=== PATIENT | female | born 1980 ===

== ENCOUNTER 2017-10-22 15:41 | Emergency (ER) | payer MEDICAID, OTHER ==
[2017-10-22 17:21] VITALS: BMI 34.0
[2017-10-22 18:19] LABS: SQUAMOUS EPITHIAL 1 /hpf (0-5); URINE BACTERIA RARE (<OCC); URINE BILIRUBIN NEGATIVE (NEGATIVE); URINE BLOOD NEGATIVE (NEGATIVE); URINE CLARITY CLEAR (Clear); URINE COLOR YELLOW (YELLOW); URINE GLUCOSE (UA) NEG (Normal); URINE LEUKOCYTE ESTERASE NEG Leu/uL (Negative); URINE PROTEIN NEGATIVE (NEGATIVE); URINE UROBILINOGEN 0.2-1.0 mg/dL (0.2-1.0)
--- NOTE | 2017-10-22 19:24 | OBHP ---
Datetime: 10/22/2017 18:58 IP Adm Impression: , intrauterine IP Admit Plan: Observation/Evaluation; Discharge home Admit Comment, IP Provider: 36 y/o female with IUP 36.2wks by US (ROSALIO 11/17) presents to [facility] complaints of headache for the last 3 days. Headache is described as 10/10 in intensity, unilater al (left side), pressure like, throbbing with no associated focal deficits. She has been taking Tylen ol which partially relieves headache to 8/10. Additionally reports mild lower abdominal pain consiste nt with contractions. Denies n/v, ctx, LE swelling, epigastric pain, vb, lof, recent illness. +FT PMD: Hoa Torres PNC: Unremarkable, As per pt, BP have been normal in clinic visits POBHx: 2 SAB, 1 TOP, 1 prior c section 10 years ago, FT, no complications. PMHX: Denies hx of migraines NKDA Medications: PNV Social: Denies habits x3 PE: General: NAD Cardio: RRR, no murmurs Pulm: CTABL Abdominal: Gravid, NT Neuro: CN 2-12 in [facility], [facility], No gross motor or sensory deficits Extremities: No pedal edema FHR: 144, reactive CTX: mild irregular ctx Assessment: IUP 36.2 weeks with headache. Observed for 2 hours. Reassuring FHR tracing. Maternal v ital signs stable. No proteinuria. Plan: Discharge patient home. Tylenol po for headache. Patient strongly advised to stay hydrated. Labor precautions provided. F/U with OBGYN as scheduled. Discussed case with OB Attending, Dr. Kiana Luna, PGY1 Addendum by Dr. Bruno: I have evluated the patient independently and I agree with the above. Patie nt ruled out for Pre-eclampsia, [id number] mod simran, +accels, no decels, TOCO = irregular. Comfortable, Pelvic Type - PN: Adequate Extremities - PN: Normal Abdomen - PN: Normal Back - PN: Normal Breast - PN: Normal Lungs - PN: Normal Heart - PN: Normal Thyroid - PN: Normal Neurologic - PN: Normal HEENT - PN: Normal General - PN: Normal FHR - Baseline A Provider: 130 Contraction Comments Provider: occasional EGA AdmitDate IP: 36.2 Vital Signs Provider: Reviewed; Within Normal Limits IP Chief Complaint: Other NICHD Variability Prov Fetus A: Moderate 6-25bpm NICHD Accel Fetus A IP Provider: [id number] FHR Category Provider Fetus A: Category I NICHD Decel Fetus A IP Provider: None Genitourinary Exam: Normal DTRs - PN: Normal
--- NOTE | 2017-10-22 19:28 | OBDCSUM ---
Datetime: 10/22/2017 18:46 Discharged to, Provider: Home Follow up at, Provider: clinic Disch Instr Activity: Normal activity Disch Instr Diet: Regular Discharge Instructions, Provider: Routine instructions given Discharge Time: 10/22/2017 18:50 Follow up in weeks, Provider: 1 wk Disch Referrals: None Contraception discussed, Prov: Yes Discharge Diagnosis Prov Other: PONCE
[2017-10-22 23:04] VITALS: BP 133/79; PULSE 88; RESP 20; TEMP 98.7; O2SAT 99
== END 2017-10-22 19:00 | disposition home or self-care (01) ==
LOC: H.EROB2 15:41
DX: O26.93 Pregnancy related conditions, unspecified, third trimester (principal); R51 Headache; R10.2 Pelvic and perineal pain; Z3A.36 36 weeks gestation of pregnancy